=== PATIENT | female | born 1960 ===

== ENCOUNTER 2023-03-15 09:42 | Inpatient (IN) | payer OTHER ==
[~2023-03-15] VITALS: Ht 157.5 cm; Wt 80.7 kg
[2023-03-15] MEDS ORDERED: CHILDREN'S ASPI81 MG PO (14:38)
[2023-03-15] MEDS ORDERED: ATORVASTATIN CA10 MG PO (14:38)
[2023-03-15] MEDS ORDERED: SYNTHROID75 MCG PO (14:38)
[2023-03-15] MEDS ORDERED: TOPROL XL25 M1 PO (14:39)
[2023-03-15] MEDS ORDERED: PROTONIX20 MG PO (14:39)
[2023-03-17] MEDS ORDERED: METOPROLOL SUCC25 MG (10:52)
== END 2023-03-18 13:11 | disposition home or self-care (01) | DRG 741 ==
LOC: OB/GYN 03-17 08:45 → O/R 03-17 08:45 → OB/GYN 03-17 10:45
PROVIDERS: ADMIT Obstetrics & Gynecology Gynecologic Oncology; ATTEND Obstetrics & Gynecology Gynecologic Oncology
PROC: 0UT74ZZ Resection of Bilateral Fallopian Tubes, Percutaneous Endoscopic Approach (ICD-10-PCS; 2023-03-17)
PROC: 0UT24ZZ Resection of Bilateral Ovaries, Percutaneous Endoscopic Approach (ICD-10-PCS; 2023-03-17)
PROC: 07BD4ZZ Excision of Aortic Lymphatic, Percutaneous Endoscopic Approach (ICD-10-PCS; 2023-03-17)
PROC: 07BC4ZZ Excision of Pelvis Lymphatic, Percutaneous Endoscopic Approach (ICD-10-PCS; 2023-03-17)
PROC: 0UT94ZZ Resection of Uterus, Percutaneous Endoscopic Approach (ICD-10-PCS; principal; 2023-03-17 17:15)
DX: C54.1 Malignant neoplasm of endometrium (principal); D25.9 Leiomyoma of uterus, unspecified; Z20.822 Contact with and (suspected) exposure to COVID-19